=== PATIENT | female | born 1970 | race Caucasian/White ===

== ENCOUNTER → 2017-11-17 | Outpatient (CLI) | payer OTHER | END | disposition home or self-care (01) | LOC: LAB SHORT 11:06 → LAB 11:06 | PROVIDERS: Obstetrics & Gynecology | DX: Z01.419 Encounter for gynecological examination (general) (routine) without abnormal findings (principal) | CPT/HCPCS: 87624; G0123 ==

== ENCOUNTER → 2018-12-13 | Outpatient (CLI) | payer OTHER ==
[2018-12-15 14:06] LABS: HPV 16 Negative (Negative); HPV 18 Negative (Negative); HPV OTHER HR TYPES Negative (Negative)
== END | disposition home or self-care (01) ==
LOC: LAB 16:06 → LAB SHORT 16:06
PROVIDERS: Obstetrics & Gynecology
DX: Z01.419 Encounter for gynecological examination (general) (routine) without abnormal findings (principal)
CPT/HCPCS: 87624; G0123

== ENCOUNTER → 2020-02-26 | Outpatient (CLI) | payer OTHER ==
[2020-02-29 16:11] LABS: HPV 16 Negative (Negative); HPV 18 Negative (Negative); HPV OTHER HR TYPES Negative (Negative)
== END | disposition home or self-care (01) ==
LOC: LAB SHORT 17:49 → LAB 17:49
PROVIDERS: Obstetrics & Gynecology
DX: Z01.419 Encounter for gynecological examination (general) (routine) without abnormal findings (principal)
CPT/HCPCS: 87624; G0123

== ENCOUNTER → 2020-03-05 | Outpatient (CLI) | payer OTHER | END | disposition home or self-care (01) | LOC: PLD 11:11 → LAB SHORT 11:11 | DX: D22.71 Melanocytic nevi of right lower limb, including hip (principal) | CPT/HCPCS: 88305 ==

== ENCOUNTER 2021-12-31 07:49 | Day surgery (SDC) | payer OTHER ==
[~2021-12-31] VITALS: Ht 172.7 cm; Wt 113.1 kg
--- NOTE | 2021-12-31 08:26 | NUR ---
Ambulatory in Day Surgery History, Chart, Medications and Allergies reviewed before start of procedure. Pre-Op teaching done. Pt verbalizes understanding. Patient States Post-Procedure ride home has been arranged with .
[2021-12-31] MEDS ORDERED: FLUT.05NI (08:32)
[2021-12-31] MEDS ORDERED: WOMEN MULTIVIT1 EAC1 PO (08:33)
--- NOTE | 2021-12-31 10:25 | NUR ---
12/31/21 1025 Libra Cruz HISTORY, CHART, MEDICATIONS AND ALLERGIES REVIEWED BEFORE START OF PROCEDURE. PATIENT CONFIRMS NPO STATUS AND AGREES WITH SCHEDULED PROCEDURE. 3-LEAD EKG REVIEWED WITH PHYSICIAN PRIOR TO START OF PROCEDURE. MONITOR INTACT WITH CONTINUOUS PULSE OXIMETRY,CAPNOGRAPHY, 3-LEAD EKG, INTERMITTENT BP. SUPPLEMENTAL O2 TO BE TITRATED THROUGHOUT PROCEDURE TO MAINTAIN O2 SATURATION ABOVE 90%. PATIENT DETERMINED TO BE ASA APPROPRIATE FOR PROPOFOL SEDATION PRIOR TO START OF PROCEDURE BY DR. ANGULO.
--- NOTE | 2021-12-31 11:30 | NUR ---
Patient up to Ambulate independently. Gait steady. Discharge instructions reviewed with patient. Patient verbalizes understanding. Copy given to patient to take home. Patient States Post-Procedure ride home has been arranged. Discharged via wheelchair to private car for ride home.
== END 2021-12-31 11:30 | disposition home or self-care (01) ==
LOC: ORSCMMR 07:49 → ORD 10:00 → ORSCSDS 10:00 → ORSCMMR 10:00
PROVIDERS: Internal Medicine Gastroenterology
PROC: 0DBL8ZX Excision of Transverse Colon, Via Natural or Artificial Opening Endoscopic, Diagnostic (ICD-10-PCS; principal; 2021-12-31 09:00)
DX: Z12.11 Encounter for screening for malignant neoplasm of colon (principal); D12.3 Benign neoplasm of transverse colon; K57.30 Diverticulosis of large intestine without perforation or abscess without bleeding
CPT/HCPCS: 88305; J2250; J2704; J7120

== ENCOUNTER 2023-12-05 20:08 | Emergency (ER) | payer OTHER ==
[~2023-12-05] VITALS: Ht 172.7 cm; Wt 104.3 kg
[~2023-12-05 20:08] MED LIST: FLUT.05NI; WOMEN MULTIVIT1 EAC1 PO
[2023-12-05] MEDS ORDERED: NS 1,000 ML IV SCH (20:20)
[2023-12-05] MEDS ORDERED: Ondansetron HCl 2 MG / ML 2ML Vial IV ONE (20:20)
[2023-12-05] MEDS ORDERED: Ketorolac Tromethamine 15mg Vial IV ONE (20:20)
[2023-12-05 20:34] LABS: BASOPHILS ABSOLUTE AUTO 0.05 K/mm3 (0.00-0.23); BASOPHILS PERCENT AUTO 1 % (0-2); EOSINOPHILS ABSOLUTE AUTO 0.28 K/mm3 (0.00-0.68); EOSINOPHILS PERCENT AUTO 3 % (0-6); Hematocrit 38.4 % (33.0-51.0); Hemoglobin 12.9 g/dL (11.5-16.0); IMMATURE GRAN ABSOLUTE AUTO 0.03 K/mm3 (0.00-0.10); IMMATURE GRAN PERCENT AUTO 0 % (0-1); LYMPHOCYTES ABSOLUTE AUTO 3.04 K/mm3 (0.84-5.20); LYMPHOCYTES PERCENT AUTO 36 % (21-46); MONOCYTES ABSOLUTE AUTO 0.47 K/mm3 (0.16-1.47); MONOCYTES PERCENT AUTO 6 % (4-13); Mean Corpuscular HGB 29.7 pg (26.0-34.0); Mean Corpuscular HGB Conc 33.6 g/dL (31.5-36.5); Mean Corpuscular Volume 88 fL (80-100); Mean Platelet Volume 10.6 fL (9.1-12.4); NEUTROPHILS ABSOLUTE AUTO 4.65 K/mm3 (1.96-9.15); NEUTROPHILS PERCENT AUTO 55 % (41-73); Platelet Count 286 K/mm3 (150-400); RDW Standard Deviation 39.1 fL (35.1-46.3); Red Blood Cell Count 4.35 M/mm3 (3.80-5.20); White Blood Cell Count 8.52 K/mm3 (4.00-11.30)
[2023-12-05 20:55] LABS: Albumin, Blood 3.7 g/dL (3.4-5.0); Albumin/Globulin Ratio 1.1 (0.8-1.8); Bilirubin, Total 0.2 mg/dL (0.1-1.0); Bun/Creatinine Ratio 22.8 (12.0-20.0); Calcium, Blood 9.1 mg/dL (8.5-10.1); Creatinine, Blood 0.75 mg/dL (0.40-1.00); Globulin, Blood 3.4 g/dL (2.2-4.0); Potassium, Blood 3.8 mmol/L (3.5-5.5); Total Protein, Blood 7.1 g/dL (6.4-8.2)
[2023-12-05 20:55] LABS: Source, Urine Clean Catch
[2023-12-05 21:04] LABS: Appearance, Urine Hazy (Clear); Bilirubin, Urine Neg (Neg); Blood, Urine 2+ (Neg); Color, Urine Yellow (P-Yellow); Glucose Qualitative, Urine Neg (Neg); Ketones, Urine Neg (Neg); Leukocyte Esterase, Urine 3+ (Neg); Nitrite, Urine Neg (Neg); Protein, Urine 1+ (Neg); Specific Gravity, Urine 1.025 (1.003-1.022); Urobilinogen, Urine NORM (Normal)
[2023-12-05] MEDS ORDERED: HYDROmorphone HCl/Pf 1MG SYR IV ONE (21:30)
[2023-12-05 21:34] LABS: Hyaline Casts 0-2 /lpf (0-2)
[2023-12-05 21:35] LABS: Bacteria Many /hpf; Squamous Epithelial Cells Many /hpf (Few)
[2023-12-05] MEDS ORDERED: CefTRIAXone Sodium 1,000 MG in NS 100 ML IV ONE (21:50)
[2023-12-06 00:30] VITALS: BP 159/89
[2023-12-06] MEDS ORDERED: OxyCODONE 5 mg/Acetamin 325 mg TABLET PO ONE (00:30)
[2023-12-06 01:19] LABS: Source, Urine Clean Catch
[2023-12-06 01:23] LABS: Bilirubin, Urine Neg (Neg); Blood, Urine 1+ (Neg); Glucose Qualitative, Urine Neg (Neg); Ketones, Urine 1+ (Neg); Leukocyte Esterase, Urine 1+ (Neg); Nitrite, Urine Neg (Neg); Protein, Urine Neg (Neg); Specific Gravity, Urine 1.025 (1.003-1.022); Urobilinogen, Urine NORM (Normal)
[2023-12-06 01:26] LABS: Appearance, Urine Clear (Clear); Color, Urine Yellow (P-Yellow)
[2023-12-06 01:29] LABS: Bacteria Rare /hpf; Red Blood Cells, Urine 0-2 /hpf (0-2); Squamous Epithelial Cells Few /hpf (Few); White Blood Cells, Urine 0-2 /hpf (0-5)
[2023-12-06] MEDS ORDERED: TRAM50 PO ×2 (01:53→01:54)
== END 2023-12-06 02:01 | disposition home or self-care (01) ==
LOC: ER 20:08
PROVIDERS: Emergency Medicine; Student in an Organized Health Care Education/Training Program
DX: N83.202 Unspecified ovarian cyst, left side (principal); E86.0 Dehydration; Z68.35 Body mass index [BMI] 35.0-35.9, adult; Z88.8 Allergy status to other drugs, medicaments and biological substances; Z79.899 Other long term (current) drug therapy
CPT/HCPCS: 74176; 80053; 81001; 81025; 83690; 85025; 87086; 96361; 96365; 96375; 99284-25; A9270; J0696; J1170; J1885; J2405; J7030

== ENCOUNTER 2023-12-21 06:08 | Day surgery (SDC) | payer OTHER ==
[2023-12-21] VITALS (23 sets, daily range): BP systolic 131–164; BP diastolic 68–92
[~2023-12-21] VITALS: Ht 170.2 cm; Wt 111.4 kg
[~2023-12-21 06:08] MED LIST changes: +TRAM50 PO
[2023-12-21] MEDS ORDERED: CeFAZolin Sodium 2,000 MG in NS 100 ML IV SCH ×2 (06:30→16:00)
[2023-12-21] MEDS ORDERED: Lactated Ringer's 1,000 ML IV SCH ×2 (06:30→12:15)
[2023-12-21] MEDS ORDERED: Dexmedetomidine HCL 200 MCG / 2 ML ONE (06:59)
[2023-12-21] MEDS ORDERED: HYDROmorphone HCl/Pf 1MG SYR ONE ×2 (07:00→12:03)
[2023-12-21] MEDS ORDERED: Rocuronium Bromide 10 MG/ML 5ML Injection IV ONE ×3 (07:01→11:08)
[2023-12-21] MEDS ORDERED: propofoL 40 ML IV ONE (07:01)
[2023-12-21] MEDS ORDERED: Lidocaine HCl 2% 20 ML MDV ONE (07:01)
[2023-12-21] MEDS ORDERED: Bupivacaine 0.5% Inj 10 ML Vial ONE (07:19)
[2023-12-21] MEDS ORDERED: Midazolam HCl 1MG / ML 2ML Vial IV ONE (07:30)
--- NOTE | 2023-12-21 07:47 | NUR ---
History, Chart, Medications and Allergies reviewed before start of procedure. Patient up to Ambulate independently. Gait steady. Pre-Op teaching done. Pt verbalizes understanding. Patient confirms NPO status and agrees with scheduled surgery. Patient reports completing Chlorhexadine shower X2 prior to admission to hospital. Lungs clear T/O to Auscultation. Patient States Post-Procedure ride home has been arranged.
[2023-12-21] MEDS ORDERED: Phenylephrine HCl 100 MCG/ML-NS 10MLSYR (1MG/10ML) ONE (07:49)
[2023-12-21] MEDS ORDERED: Dexamethasone Sod Phos 10 MG/ML 1ML VIAL ONE (07:50)
[2023-12-21] MEDS ORDERED: Ondansetron HCl 2 MG / ML 2ML Vial ONE (10:52)
[2023-12-21] MEDS ORDERED: Sugammadex Sodium 200 MG/2ML SDV (100 MG/ML) ONE (11:08)
[2023-12-21] MEDS ORDERED: FentaNYL Citrate 50 MCG/ML 2 ML Injection ONE ×2 (11:51→12:23)
[2023-12-21] MEDS ORDERED: HYDROcodone 5-APAP 325 TAB PO PRN (12:10)
[2023-12-21] MEDS ORDERED: Simethicone 80 MG Chew PO PRN (12:10)
[2023-12-21] MEDS ORDERED: Ondansetron 4 MG TAB PO PRN (12:15)
[2023-12-21] MEDS ORDERED: Promethazine HCl 25 MG Tab PO PRN (12:15)
[2023-12-21] MEDS ORDERED: Ondansetron HCl 2 MG / ML 2ML Vial IV PRN (12:15)
[2023-12-21] MEDS ORDERED: Naloxone HCl 0.4MG / ML 1ML Vial IV PRN (12:15)
[2023-12-21] MEDS ORDERED: Promethazine HCl 12.5 MG Supp PR PRN (12:20)
[2023-12-21] MEDS ORDERED: FentaNYL Citrate 50 MCG/ML 2 ML Injection IV PRN (12:20)
[2023-12-21] MEDS ORDERED: Ketorolac Tromethamine 30mg Vial ONE (12:25)
[2023-12-21] MEDS ORDERED: Ketorolac Tromethamine 30mg Vial IV PRN (12:40)
--- NOTE | 2023-12-21 17:07 | NUR ---
SHIFT SUMMARY S/P ROBOTIC TOTAL LAP HYSTER. PT VERY PAINFUL. 2 NORCO/TORADOL/FENTANYL FOR PAIN CONTROL. KPAD + ABD BINDER TO ABD FOR COMFORT. PT ABLE TO STAND AT SIDE OF BED TO CHANGE SNEHA PAD. SCANT VAGINAL BLEEDING NOTED. MAHONEY DRAINING YELLOW URINE. LAP SITES X4 TO ABD WITH WOUND GLUE REMAIN CDI. IVF INFUSING PER ORDERS. HAS TOLERATED A CRACKER. AT BEDSIDE SUPPORTIVE. CALL LIGHT WITHIN REACH.
[2023-12-22 04:19] VITALS: BP 153/75
[2023-12-22 04:39] LABS: BASOPHILS ABSOLUTE AUTO 0.01 K/mm3 (0.00-0.23); BASOPHILS PERCENT AUTO 0 % (0-2); EOSINOPHILS ABSOLUTE AUTO 0.01 K/mm3 (0.00-0.68); EOSINOPHILS PERCENT AUTO 0 % (0-6); Hematocrit 34.6 % (33.0-51.0); Hemoglobin 11.5 g/dL (11.5-16.0); IMMATURE GRAN ABSOLUTE AUTO 0.03 K/mm3 (0.00-0.10); IMMATURE GRAN PERCENT AUTO 0 % (0-1); LYMPHOCYTES ABSOLUTE AUTO 1.75 K/mm3 (0.84-5.20); LYMPHOCYTES PERCENT AUTO 19 % (21-46); MONOCYTES ABSOLUTE AUTO 0.67 K/mm3 (0.16-1.47); MONOCYTES PERCENT AUTO 7 % (4-13); Mean Corpuscular HGB 29.9 pg (26.0-34.0); Mean Corpuscular HGB Conc 33.2 g/dL (31.5-36.5); Mean Corpuscular Volume 90 fL (80-100); NEUTROPHILS ABSOLUTE AUTO 6.61 K/mm3 (1.96-9.15); NEUTROPHILS PERCENT AUTO 73 % (41-73); Platelet Count 337 K/mm3 (150-400); RDW Coefficient Variation 11.8 % (11.7-14.2); RDW Standard Deviation 37.7 fL (35.1-46.3); Red Blood Cell Count 3.85 M/mm3 (3.80-5.20); White Blood Cell Count 9.08 K/mm3 (4.00-11.30)
--- NOTE | 2023-12-22 05:35 | NUR ---
SHIFT SUMMARY POD1 TOTAL ROBOTIC LAP HYSTER. X4 LAP SITES ARE C/D/I. VSS. PT SLEPT ON AND OFF T/O THE NIGHT. MEDICATED FOR PAIN PER EMAR, PT UNINTERESTED IN NONPHARM METHODS T/O THE NIGHT. MAHONEY REMOVED AT 0530 AND PT GIVEN ICE WATER. PT DID NOT GET OOB T/O THE NIGHT. PLAN FOR PT TO AMBULATE AND VOID, D/C WHEN CLEARED.
[2023-12-22 07:22] VITALS: BP 132/73
[2023-12-22] MEDS ORDERED: Estradiol 1 MG Tab PO SCH (09:00)
[2023-12-22] MEDS ORDERED: ESTR2 PO (11:05)
[2023-12-22] MEDS ORDERED: SIME80CH PO (11:06)
[2023-12-22] MEDS ORDERED: PROM25 PO (11:06)
[2023-12-22 14:44] VITALS: BP 130/67
--- NOTE | 2023-12-22 17:45 | NUR ---
PT EATING DINNER AND THEN WILL BE DISCHARGED TO HOME WITH . PT REPORTS ADEQUATE PAIN CONTROL WITH PO MEDS. LAURA FOOD AND FLUID WITHOUT NAUSEA. AMBULATING IN ROOM WITH STANDBY ASSIST. VOIDING WITHOUT DIFFICULTY. PT AND HER VERBALIZE UNDERSTANDING OF DISCHARGE INSTRUCTIONS
--- NOTE | 2023-12-22 18:16 | NUR ---
DISCHARGED TO HOME
== END 2023-12-22 17:30 | disposition home or self-care (01) ==
LOC: ORSCMMR 06:08 → ORD 07:30 → ORSCMMR 07:30 → SURS 13:02 → ORSCMMR 13:02 → SURS 12-22 17:30
PROVIDERS: Obstetrics & Gynecology
PROC: 0UT94ZZ Resection of Uterus, Percutaneous Endoscopic Approach (ICD-10-PCS; principal; 2023-12-21 07:30)
PROC: 0UT24ZZ Resection of Bilateral Ovaries, Percutaneous Endoscopic Approach (ICD-10-PCS; principal; 2023-12-21 07:30)
PROC: 0UT74ZZ Resection of Bilateral Fallopian Tubes, Percutaneous Endoscopic Approach (ICD-10-PCS; principal; 2023-12-21 07:30)
DX: N93.9 Abnormal uterine and vaginal bleeding, unspecified (principal); N83.512 Torsion of left ovary and ovarian pedicle; D27.1 Benign neoplasm of left ovary; D27.0 Benign neoplasm of right ovary; N80.03 Adenomyosis of the uterus; D25.9 Leiomyoma of uterus, unspecified; N84.1 Polyp of cervix uteri; N73.6 Female pelvic peritoneal adhesions (postinfective); E66.9 Obesity, unspecified; Z68.38 Body mass index [BMI] 38.0-38.9, adult
CPT/HCPCS: 36415; 85025; 86850; 86900; 86901; 88307; 94762; A9270; J0690; J1100; J1170; J1885; J2250; J2371; J2405; J2704; J3010; J7120

== ENCOUNTER 2024-12-26 08:40 | Day surgery (SDC) | payer OTHER ==
[~2024-12-26] VITALS: Ht 172.7 cm; Wt 119.7 kg
[~2024-12-26 08:40] MED LIST changes: +ESTR2 PO; +PROM25 PO; +SIME80CH PO
[2024-12-26] MEDS ORDERED: CETI5 (08:58)
[2024-12-26] MEDS ORDERED: Ondansetron HCl 2 MG / ML 2ML Vial ONE (10:34)
[2024-12-26 11:08] VITALS: BP 139/77
== END 2024-12-26 11:00 | disposition home or self-care (01) ==
LOC: ORSCSDS 08:40
PROVIDERS: Internal Medicine Gastroenterology
PROC: 0DBK8ZX Excision of Ascending Colon, Via Natural or Artificial Opening Endoscopic, Diagnostic (ICD-10-PCS; principal; 2024-12-26 10:00)
PROC: 0DBM8ZX Excision of Descending Colon, Via Natural or Artificial Opening Endoscopic, Diagnostic (ICD-10-PCS; principal; 2024-12-26 10:00)
DX: Z12.11 Encounter for screening for malignant neoplasm of colon (principal); K63.5 Polyp of colon; D12.4 Benign neoplasm of descending colon; K57.30 Diverticulosis of large intestine without perforation or abscess without bleeding; Z86.0100 Personal history of colon polyps, unspecified
CPT/HCPCS: 88305; J2405; J2704; J7120

== ENCOUNTER → 2025-03-11 | Outpatient (CLI) | payer OTHER ==
[~2025-03-11] MED LIST changes: +CETI5
[2025-03-12 15:37] LABS: Candida Group, PCR NOT DETECTED (NOT DETECT); Candida glabrata-krusei, PCR NOT DETECTED (NOT DETECT)
[2025-03-12 15:39] LABS: Bacterial Vaginosis PCR Positive (NEGATIVE)
== END ==
LOC: LAB 16:00 → LAB SHORT 16:00
PROVIDERS: Registered Nurse Community Health
DX: N89.8 Other specified noninflammatory disorders of vagina (principal)
CPT/HCPCS: 81515